=== PATIENT | female | born 1965 | race African-American/Black ===

== ENCOUNTER 2019-06-04 14:58 | Observation (INO) ==
[2019-06-04 16:32] LABS: Bilirubin,Urine Negative (Negative); Blood,Urine Negative (Negative); Clarity,Urine Clear (Clear); Color,Urine Yellow (Yellow); Glucose,Urine (UA) >=1000 mg/dL (Normal); Ketones,Urine Negative (Negative); Leukocyte Esterase,Urine Negative (Negative); Nitrite,Urine Negative (Negative); PH,Urine 7.5 pH Units (5.0-8.0); Protein,Urine Negative (Neg-Trace); Specific Gravity,Urine > 1.030 (1.010-1.025); Urobilinogen,Urine Normal (Normal)
--- NOTE | 2019-06-04 16:37 | Emergency Department Note ---
Disposition Clinical Impression: Vertigo Fall Qualifiers: Encounter type: initial encounter Qualified Code(s): W19.XXXA - Unspecified fall, initial encounter Strain of wrist, left Qualifiers: Encounter type: initial encounter Qualified Code(s): S66.912A - Strain of unspecified muscle, fascia and tendon at wrist and hand level, left hand, initial encounter Diabetes mellitus, type II Qualifiers: Diabetes mellitus senior care insulin use: unspecified senior care insulin use status Diabetes mellitus complication status: with other specified complication Qualified Code(s): E11.69 - Type 2 diabetes mellitus with other specified complication Disposition: Admitted As Inpatient Condition: Fair Referrals: Mirela Moreno [Primary Care Provider] - Forms: ED Satisfaction Letter Time of Disposition: 18:49 General Adult HPI - General Chief complaint: ED Fall Stated complaint: Fall Time Seen by Provider: 06/04/19 15:20 Source: patient Limitations: no limitations Nursing Notes Reviewed: Yes Vital Signs Reviewed: Yes - History of Present Illness HPI Narrative: She presents because of a fall and also with vertigo. The story is that she woke up to go to the bathroom around 3:00 in the morning and walked down one step and then she fell and landed the ground for about 20 minutes because she said that when she yelled out known was there to help her and she thinks that she slipped and fell however when she got back in bed and then woke up around 8:00 in the morning she had vertigo. She said she fell back onto the bed and this vertigo is new and she has not had this in the past. States she did not hit her head when she fell initially at 3:00 in the morning. She denies any numbness or weakness of extremities, slurred speech, facial droop or confusion. She does have left wrist and left elbow and left shoulder pain as well as left hip pain and right lower back pain which is worse with range of motion. Social history: Is here with her daughter and other family. No smoking or alcohol drugs Pain Scale: 8 - Related Data Home Medications Medication Instructions Recorded Confirmed Aspirin 81 mg PO DAILY 01/11/16 05/05/17 Lisinopril [Zestril] 20 mg PO BID 01/11/16 05/05/17 Lovastatin [Mevacor] 20 mg PO DAILY 01/11/16 05/05/17 metFORMIN [Glucophage] 1,000 mg PO QPM 01/11/16 05/05/17 Albuterol Sulfate [Proair Hfa] 2 puff IH Q4H PRN 02/23/16 05/05/17 Omeprazole [PriLOSEC] 20 mg PO QPM 02/23/16 05/05/17 Oxygen 1 each .ROUTE AD 02/23/16 05/05/17 Furosemide [Lasix] 20 mg PO DAILY 06/29/16 05/05/17 Albuterol Neb [Proventil Neb] 2.5 mg IH Q4H PRN 05/05/17 05/05/17 Cetirizine HCl [All Day Allergy] 10 mg PO DAILY 05/05/17 05/05/17 Mometasone/Formoterol [Dulera 200 2 puff IH BID 05/05/17 05/05/17 Mcg/5 Mcg Inhaler] Tiotropium [place] [Spiriva 2 puff IH DAILY 05/05/17 05/05/17 Respimat] raNITIdine HCl [Zantac] 150 mg PO BID 05/05/17 05/05/17 Previous Rx's Medication Instructions Recorded amLODIPine [Norvasc] 10 mg PO DAILY #30 tablet 01/17/16 hydrALAZINE [HydrALAZINE] 50 mg PO Q8HR #90 tablet 01/17/16 Albuterol Sulfate [Proventil Hfa] 6.7 gm IH QID #1 [id number] 09/08/18 Azithromycin [Azithromycin 6-Tab 250 mg PO PER PKG DI #6 tab 09/08/18 Pack] PredniSONE [Deltasone] 20 mg PO BID #10 tablet 09/08/18 Azithromycin [Azithromycin 6-Tab 250 mg PO PER PKG DI #6 tab 02/10/19 Pack] Allergies Allergy/AdvReac Type Severity Reaction Status Date / Time omeprazole Allergy See Verified 02/09/19 22:21 Comments All systems ED: reviewed and negative except as stated. Past Medical History - Past Medical History Medical history: Reports: arthritis, asthma, COPD, diabetes, GERD, hyperlipidemia, hypertension, osteoporosis, venous stasis, other Surgical history: Reports: cholecystectomy, colostomy, orthopedic, other, other Psychiatric history: Reports: no psych history - Social History Smoking Status: Former smoker Smokeless Tobacco Status: No Alcohol use: Reports: none Drug use: Reports: none Physical Exam CONSTITUTIONAL: Well-appearing; well-nourished; A&O X3, in no apparent distress HEAD: Normocephalic; atraumatic. EYES: PERRL, EOMI, no scleral icterus NOSE: The nose is normal in appearance without rhinorrhea NECK: Supple without rigidity, no PAYTON RESP: Normal chest excursion with respiration; breath sounds clear and equal bilaterally; no wheezes, rhonchi, or rales CARD: Regular rhythm, without murmurs, rub or gallop ABD: Non-distended; non-tender, soft, without rigidity, rebound or guarding SKIN: Normal for age and race; warm and dry; no apparent lesions, no rash NEUROLOGICAL: Patient is alert and oriented times three. Cranial nerves III- XII are intact. Sensory and motor functions are intact. Strength is 5/5 for flexion and extension in all 4 extremities. Finger to nose testing is equal and normal bilaterally. - General Limitations: no limitations General appearance: alert Course Vital Signs Temperature 99.0 F 06/04/19 15:01 Pulse Rate 74 06/04/19 15:01 Respiratory Rate 22 06/04/19 15:01 Blood Pressure 171/82 06/04/19 15:01 O2 Sat by Pulse Oximetry 93 06/04/19 15:01 Temperature 99.0 F 06/04/19 15:23 Pulse Rate 77 06/04/19 16:03 Respiratory Rate 16 06/04/19 16:03 Blood Pressure 158/89 06/04/19 16:03 O2 Sat by Pulse Oximetry 96 06/04/19 16:03 Oxygen Delivery Oxygen Delivery Room Air Medical Decision Making - [facility] Narrative Medical decision making narrative: Patient does have 2 issues and we will get an x-ray of the left wrist and right hip to look for evidence of fracture however this is unlikely based on my exam. The patient also has vertigo and was unsteady and the question is whether the patient could have had a cerebellar or brainstem infarct but actually caused the fall and still has that. Patient states he just does not feel right. Will be observed closely and reassessed with test results evaluated. 1637 I did go back and speak with the patient again and also review the test results. CAT scan is negative which show she does not have a bleed from her fall this morning however does not adequately evaluate the cerebellum and so with the patient's vertigo, her feeling of being "foggy", and her concomitant diabetes and hypertension and concern for cerebellar or brainstem infarct patient will be admitted and the hospitalist is paged. Regarding the tests the wrist x-ray was repeated with scaphoid view per radiology request however we are waiting for the official read and the patient will be placed in a left wrist splint. 1846 Care is transitioned to Dr. Martinez at change of shift and he will discuss the care with the hospitalist. The scaphoid review of the wrist will need to be followed up as a inpatient and I did speak with the radiology department and they have contacted the radiologist to do a stat read. The patient is placed in a wrist thumb spica splint 1908 - Medical Records Medical records reviewed: Yes I reviewed the patient's medical records. - Lab Data Lab results reviewed: Yes I reviewed the patient's lab results. Result diagrams: 06/04/19 17:09 06/04/19 17:09 Lab Results 06/04/19 06/04/19 06/04/19 Range/Units 16:15 17:09 17:09 WBC 9.3 (4.3-11.1) K/mcL RBC 4.92 (3.82-4.97) M/mcL Hgb 14.1 (11.5-15.4) g/dL Hct 42.7 (35.3-44.9) % MCV 86.8 (83.0-100.0) fL MCH 28.7 (28.0-33.3) pg MCHC 33.0 (31.6-35.5) g/dL RDW 13.1 (11.5-14.5) % Plt Count 285 (140-400) K/mcL MPV 10.0 (9.4-12.4) fL Sodium 139 (136-145) mEq/L Potassium 3.7 (3.5-5.1) mEq/L Chloride 102 (98-107) mEq/L Carbon Dioxide 26 (23-29) mEq/L BUN 12 (6-20) mg/dL Creatinine 0.98 (0.60-1.20) mg/dL Est GFR ( Amer) > 60 (> 60) Est GFR (Non-Af Amer) 59 L (> 60) BUN/Creatinine Ratio 12 (6-26) Glucose 383 H (70-105) mg/dL Calculated Osmolality 304 H (280-300) Calcium 9.2 (8.6-10.3) mg/dL Troponin I < 0.03 (< 0.04) ng/mL Urine Color Yellow (Yellow) Urine Clarity Clear (Clear) Urine pH 7.5 (5.0-8.0) pH Units Ur Specific [place] > 1.030 H (1.010-1.025) Urine Protein Negative (Neg-Trace) mg/dL Urine Glucose (UA) >=1000 H (Normal) mg/dL Urine Ketones Negative (Negative) mg/dL Urine Blood Negative (Negative) Urine Nitrite Negative (Negative) Urine Bilirubin Negative (Negative) Urine Urobilinogen Normal (Normal) mg/dL Ur Leukocyte Esterase Negative (Negative) - Radiology Data Radiology results reviewed: Yes I reviewed the patient's radiology results. NIH Stroke Scale - Level of Consciousness LOC: Alert - LOC Questions LOC Questions: Answers both correctly - LOC Commands LOC Commands: Performs both correctly - Best Gaze Best Gaze: Normal - Visual Visual: No visual loss - Facial Palsy Facial Palsy: Normal - Motor Arms Motor Arm-Left: No drift for 10 seconds Motor Arm-Right: No drift for 10 seconds - Motor Legs Motor Leg-Left: No drift for 5 seconds Motor Leg-Right: No drift for 5 seconds - Limb Ataxia Limb Ataxia: Normal, No Ataxia - Sensory Sensory: Normal - Best Language Best Language: No aphasia - Dysarthria Dysarthria: Normal - Extinction and Inattention Extinction and Inattention: Normal - NIHSS Total Score NIHSS Total Score: 0
[2019-06-04 17:28] LABS: Hematocrit 42.7 % (35.3-44.9); Hemoglobin 14.1 g/dL (11.5-15.4); Mean Corpuscular Hemoglobin 28.7 pg (28.0-33.3); Mean Corpuscular Volume 86.8 fL (83.0-100.0); Platelet Count 285 K/mcL (140-400); Red Blood Count 4.92 M/mcL (3.82-4.97); Red Cell Distribution Width 13.1 % (11.5-14.5); White Blood Count 9.3 K/mcL (4.3-11.1)
[2019-06-04 17:47] LABS: BUN/Creatinine Ratio 12 (6-26); Blood Urea Nitrogen 12 mg/dL (6-20); Calcium 9.2 mg/dL (8.6-10.3); Carbon Dioxide 26 mEq/L (23-29); Chloride 102 mEq/L (98-107); Glucose 383 mg/dL (70-105); Osmolality,Calculated 304 (280-300); Potassium 3.7 mEq/L (3.5-5.1); Sodium 139 mEq/L (136-145); eGFR For African Americans > 60 (> 60); eGFR For Non-African Americans 59 (> 60)
[2019-06-04 17:48] LABS: Troponin I < 0.03 ng/mL (< 0.04)
[2019-06-04] MEDS ORDERED: Lisinopril 20 MG TABLET PO STA (20:23)
[2019-06-04] MEDS ORDERED: Naloxone 0.4 MG/ML INJ IVP PRN (22:31)
[2019-06-04] MEDS ORDERED: amLODIPine 5 MG TABLET PO ONE (22:40)
[2019-06-04] MEDS ORDERED: Isovue-370 500 ML BOTTLE IVP ONE (22:50)
--- NOTE | 2019-06-04 23:40 | Internal Med History&Physical ---
Date of Encounter: 06/04/19 Time of Encounter: 22:30 Internal Medicine - H&P: HPI Chief complaint: Fall Admitted From: Home Plans for Post Hospital Care: Home History of present illness: Ms. Swenson is a 54 year old female with past medical history significant for hypertension, hyperlipidemia, asthma, COPD, diabetes, osteoarthritis, GERD, and sleep apnea on BIPAP who presents following mechanical fall and with complaints of dizziness. Reports last night she got up to go to restroom and tripped on something on the floor and landed on her left side. Denies striking her head, loosing consciousness, or anticoagulation use. Reports she was down on the floor for around 20 minutes trying to get up as she was sore from falling and her family couldn't hear her calling for help. Reported pain to entire left side of her body following fall but has been able to ambulate since. Reports most of her pain now isolated to her left wrist. States after she went back to bed following fall she woke up a few hours later and was dizzy upon awakening. States she sometimes has dizziness with quick positional changes but never upon awakening and never this intense. Also states she had some blurry vision during this time as well which is unusual for her. Denies any associated slurred speech, facial droop, numbness, tingling, or confusion. Also reports having posterior headaches over past month which is unusual for her as well. ER obtained EKG which showed sinus rhythm. ER also obtained chest, left hip, and left wrist xrays which showed no acute process of the left hip or chest but did show possible injury of the left scaphoid bone recommending dedicated scaphoid view of left wrist. Additional scaphoid views were added for review and addendum was faxed to nursing unit which showed benign appearing cystic lucency of the distal pole of the scaphoid is likely degenerative and no acute fracture of the scaphoid is identified on the scaphoid views. ER also obtained head CT which showed no acute intracranial abnormality. Patient was medicated in ER with Lisinopril and Antivert, and had a splint placed on her left wrist. Currently she reports improvement in her left wrist pain with immobilization and resolution of her dizziness with Antivert. Currently denies any headache, numbness, tingling, chest pain, shortness of breath above baseline, cough, abdominal pain, bowel or bladder changes. Reports running out of her blood pressure medication over past three days and not taking any but is unsure what her blood pressures have been. Reports following regularly with her PCP and Pulmonary. Past Med Surg Social Fam HX - Past Medical History Medical history: arthritis, asthma, COPD, diabetes, GERD, hyperlipidemia, hypertension, osteoporosis, venous stasis, other Additional medical history: Diverticulitis, sleep apnea on BIPAP Psychiatric history: no psych history - Past Surgical History Surgical History: cholecystectomy, colostomy, orthopedic, other, other Additional surgical history: sleep apnea, lung procedures, colostomy and reversal - Social History Smoking Status: Former smoker Smokeless Tobacco Status: No Alcohol use: occasionally Drug use: none - Family History Mother Adopted: No Living Status: Hx Family Cardiac Disorders: Yes Hx Family Cancer: Yes (rare fibroid cancer) Hx Family Endocrine Disorder: Yes Father Living Status: Hx Family Cancer: Yes Internal Medicine - H&P: Meds Aspirin 81 mg PO DAILY 01/11/16 [History] Lisinopril [Zestril] 20 mg PO BID 01/11/16 [History] Lovastatin [Mevacor] 20 mg PO DAILY 01/11/16 [History] metFORMIN [Glucophage] 1,000 mg PO QPM 01/11/16 [History] amLODIPine [Norvasc] 10 mg PO DAILY #30 tablet 01/17/16 [Rx] Albuterol Sulfate [Proair Hfa] 2 puff IH Q4H PRN 02/23/16 [History] Oxygen 1 each .ROUTE AD 02/23/16 [History] Furosemide [Lasix] 20 mg PO DAILY 06/29/16 [History] Albuterol Neb [Proventil Neb] 2.5 mg IH Q4H PRN 05/05/17 [History] Cetirizine HCl [All Day Allergy] 10 mg PO DAILY 05/05/17 [History] Mometasone/Formoterol [Dulera 200 Mcg/5 Mcg Inhaler] 2 puff IH BID 05/05/17 [History] Tiotropium [place] [Spiriva Respimat] 2 puff IH DAILY 05/05/17 [History] Allergy/AdvReac Type Severity Reaction Status Date / Time omeprazole Allergy See Verified 02/09/19 22:21 Comments All Systems PM: A 10-system review of systems was performed and is negative for pertinent findings except as documented above in the HPI. - Constitutional Vitals: Temp Pulse Resp BP Pulse Ox 99.1 F 87 17 160/100 94 06/04/19 21:35 06/04/19 21:35 06/04/19 21:35 06/04/19 22:33 06/04/19 21:35 Exam: General: Alert and oriented. Skin:Normal color, no rash, no lesions. HEENT:Pupils equal, round and reactive. Cardiovascular:Heart sounds distant, no rubs, murmurs or gallops. No JVD. Pulse regular. Lungs:Breath sounds decreased, no wheezes or crackles. Abdomen:Soft, non-tender, no rigidity. Extremities:No deformity, no edema or tenderness, no joint swelling or clubbing. Neurological:Normal cognition and motor skills. NIHSS 0. GCS 15. Pulses:Carotid and radial pulses normal +2. Rest of the physical exam is non contributory. Internal Med - H&P Results - Labs CBC & Chem 7: 06/04/19 17:09 06/04/19 17:09 Labs: Short CBC 06/04/19 Range/Units 17:09 WBC 9.3 (4.3-11.1) K/mcL Hgb 14.1 (11.5-15.4) g/dL Hct 42.7 (35.3-44.9) % Plt Count 285 (140-400) K/mcL BMP 06/04/19 17:09 Sodium 139 Potassium 3.7 Chloride 102 Carbon Dioxide 26 BUN 12 Creatinine 0.98 Glucose 383 H Calcium 9.2 Cardiac Enzymes 06/04/19 Range/Units 17:09 Troponin I < 0.03 (< 0.04) ng/mL Urine 06/04/19 Range/Units 16:15 Urine Color Yellow (Yellow) Urine Clarity Clear (Clear) Urine pH 7.5 (5.0-8.0) pH Units Ur Specific [place] > 1.030 H (1.010-1.025) Urine Protein Negative (Neg-Trace) mg/dL Urine Glucose (UA) >=1000 H (Normal) mg/dL - Impressions ITS Impressions Chest X-Ray 06/04/19 16:45 IMPRESSION: Possible injury of the left scaphoid bone. Dedicated scaphoid view of the left wrist is recommended. No acute process of the left hip or chest. D/ / 06/04/2019 16:55:47 Kang Pina MD / victor manuel Interpreting Provider: Kang Pina MD Hip X-Ray 06/04/19 16:45 IMPRESSION: Possible injury of the left scaphoid bone. Dedicated scaphoid view of the left wrist is recommended. No acute process of the left hip or chest. D/ / 06/04/2019 16:55:47 Kang Pina MD / victor manuel Interpreting Provider: Kang Pina MD Wrist X-Ray 06/04/19 16:45 IMPRESSION: Possible injury of the left scaphoid bone. Dedicated scaphoid view of the left wrist is recommended. No acute process of the left hip or chest. D/ / 06/04/2019 16:55:47 Kang Pina MD / victor manuel Interpreting Provider: Kang Pina MD Head CT 06/04/19 17:09 IMPRESSION: No acute intracranial abnormality. D/ / Harmeet Mccullough MD / Harmeet Mccullough MD Interpreting Provider: Harmeet Mccullough MD - Assessment and Plan (1) Fall Current Visit: Yes Status: Acute Assessment and plan: Reports mechanical fall last night after tripping on something on the floor landing on her left side. Denies striking her head, losing consciousness, or anticoagulation use. Reported pain to entire left side of her body following fall but is unable to ambulate since and now pain is mostly isolated to her left wrist. ER also obtained chest, left hip, and left wrist xrays which showed no acute process of the left hip or chest but did show possible injury of the left scaphoid bone recommending dedicated scaphoid view of left wrist. Additional scaphoid views were obtained and faxed to nursing unit which showed benign appearing cystic lucency of the distal pole of the scaphoid is likely degenerative and no acute fracture of the scaphoid is identified on the scaphoid views. ER also obtained head CT which showed no acute intracranial abnormality. Fall precautions ordered. PT consult ordered. Qualifiers: Encounter type: initial encounter Qualified Code(s): W19.XXXA - Unspecified fall, initial encounter (2) Dizziness Current Visit: Yes Status: Acute Assessment and plan: Reported after she went back to bed following fall she woke up a few hours later and was dizzy upon awakening. States she sometimes has dizziness with quick positional changes but never upon awakening and never this intense. Dizziness was associated with blurry vision which is unusual for her, also reports having posterior headaches over past month which is unusual for her as well. Symptoms remain resolved currently after receiving antivert in ER. Head CT showed no acute intracranial abnormality. Will obtain CTA of head and neck to rule out any further pathology. Neuro checks ordered. (3) Hypertension Current Visit: Yes Status: Acute Assessment and plan: Reports running out of her blood pressure medication over past three days and not taking any but is unsure what her blood pressures have been. Blood pressure elevated on admission. Blood pressure medications resumed, will continue to monitor. Qualifiers: Hypertension type: unspecified Qualified Code(s): I10 - Essential (primary) hypertension (4) COPD (chronic obstructive pulmonary disease) Current Visit: Yes Status: Chronic Assessment and plan: Not in acute exacerbation. Resume home medications once verified. Qualifiers: COPD type: unspecified COPD Qualified Code(s): J44.9 - Chronic obstructive pulmonary disease, unspecified (5) Sleep apnea Current Visit: Yes Status: Chronic Assessment and plan: Continue home BIPAP at night. Qualifiers: Sleep apnea type: unspecified type Qualified Code(s): G47.30 - Sleep apnea, unspecified (6) Diabetes mellitus Current Visit: Yes Status: Chronic Assessment and plan: Hold home diabetic medications. Sliding scale insulin ordered. Accu-Chek's ordered. Qualifiers: Qualified Code(s): E11.9 - Type 2 diabetes mellitus without complications - Time Spent With Patient Total time spent is greater than 50% in coordination of care (as documented) at patient's floor/unit and/or counseling patient:
[2019-06-05 01:42] LABS: Basophils % 0.3 %; Eosinophils # 0.2 K/mcL (0.0-0.6); Eosinophils % 2.6 %; Hemoglobin 13.7 g/dL (11.5-15.4); Immature Granulocytes % 0.4 % (0-4); Lymphocytes # 1.9 K/mcL (0.6-4.6); Lymphocytes % 23.8 %; Mean Corpuscular HGB Conc 32.6 g/dL (31.6-35.5); Mean Corpuscular Hemoglobin 28.5 pg (28.0-33.3); Mean Corpuscular Volume 87.3 fL (83.0-100.0); Mean Platelet Volume 10.1 fL (9.4-12.4); Monocytes # 0.5 K/mcL (0.0-1.3); Monocytes % 6.6 %; Neutrophils # 5.2 K/mcL (1.6-8.9); Platelet Count 278 K/mcL (140-400); Red Blood Count 4.81 M/mcL (3.82-4.97); Red Cell Distribution Width 13.1 % (11.5-14.5); Segmented Neutrophils % 66.3 %; White Blood Count 7.8 K/mcL (4.3-11.1)
[2019-06-05 01:59] LABS: BUN/Creatinine Ratio 13 (6-26); Blood Urea Nitrogen 13 mg/dL (6-20); Calcium 8.8 mg/dL (8.6-10.3); Carbon Dioxide 27 mEq/L (23-29); Chloride 100 mEq/L (98-107); Glucose 438 mg/dL (70-105); Osmolality,Calculated 299 (280-300); Potassium 3.8 mEq/L (3.5-5.1); Sodium 135 mEq/L (136-145); eGFR For African Americans > 60 (> 60); eGFR For Non-African Americans 59 (> 60)
[2019-06-05] MEDS ORDERED: D5% in Water 1,000 ML IVC PRN (09:02)
[2019-06-05] MEDS ORDERED: Dextrose Gel 15 GM/37.5 ML TUBE PO PRN ×2 (09:02)
[2019-06-05] MEDS ORDERED: *HR* Dextrose 50 % in Water (Syg) 50 ML SYRINGE IVP PRN (09:02)
[2019-06-05] MEDS ORDERED: Albuterol 2.5 MG/3 ML NEBULIZER IH PRN (10:46)
[2019-06-05] MEDS ORDERED: *HR* OxyCODONE/APAP 5/325 TABLET PO PRN (10:48)
[2019-06-05] MEDS: Aspirin 81 MG TAB.CHEW PO SCH (11:22)
[2019-06-05] MEDS: Lisinopril 20 MG TABLET PO SCH ×2 (11:23→20:27)
[2019-06-05] MEDS: Acetaminophen 325 MG TABLET PO PRN (11:23)
[2019-06-05] MEDS: Loratadine 10 MG TABLET PO SCH (11:23)
[2019-06-05] MEDS: amLODIPine 5 MG TABLET PO SCH (11:23)
[2019-06-05] MEDS: Insulin LISPRO 300 UNITS/3 ML VIAL SQ SCH ×2 (11:57→16:28)
--- NOTE | 2019-06-05 12:21 | Internal Med Progress Note ---
Hospitalist Progress Note - Encounter Date of Encounter: 06/05/19 Time of Encounter: 10:40 - Subjective Interval History: Ms. Swenson is a 54 year old female with past medical history significant for hypertension, hyperlipidemia, asthma, COPD, diabetes, osteoarthritis, GERD, and sleep apnea on BIPAP who presents following mechanical fall and with complaints of dizziness. As per pt last night she got up to go to restroom and tripped on something on the floor and landed on her left side. She did c/o severe left wrist pain. She was admitted in the hospital and placed on bath mixer. Patient stated she still feeling lightheaded and dizzy. Her left wrist pain is tolerable with pain medication. She denied any chest pain/shortness of breath. - Exam Vitals: Temp Pulse Resp BP Pulse Ox 98.5 F 66 16 149/83 94 06/05/19 10:49 06/05/19 10:49 06/05/19 10:49 06/05/19 10:49 06/05/19 10:49 Exam: Gen: Alert, awake, Oriented to time,place and person Chest: Diminished breath sounds B/L, No wheezing, No crackles, No rales Heart: S1S2+ RRR No murmurs Abd: Soft, NT, BS +, No organomegaly Ext: pulses are palpable, No calf tenderness LUE- mild limited ROM in Left wrist due to pain, mild swelling noticed.. Splint placed on Left wrist. No erythema noticed Neuro : No acute focal neuro deficits noticed Skin: No rash. - Assessment and Plan (1) Dizziness Current Visit: Yes Status: Acute Assessment and Plan: cont on tele cont neuro checks need to r/o CVA too. order MRI of Brain CTA of Head and Neck - no convincing evidence of hemodynamic stenosis or o cclusion involving the cervical arterial vasculature cont Meclizine (2) Strain of wrist, left Current Visit: Yes Status: Acute Assessment and Plan: concerning for scaphoid fracture Consulted Ortho Ordered MRI of Left Wrist PT / OT eval (3) Fall Current Visit: Yes Status: Acute Assessment and Plan: PT / OT eval (4) Hypertension Current Visit: Yes Status: Acute Assessment and Plan: stable BP with current meds cont home meds (5) COPD (chronic obstructive pulmonary disease) Current Visit: Yes Status: Chronic Assessment and Plan: Not in acute exacerbation. cont home medications (6) Sleep apnea Current Visit: Yes Status: Chronic Assessment and Plan: Continue home BIPAP at night. (7) Diabetes mellitus Current Visit: Yes Status: Chronic Assessment and Plan: Hold home diabetic medications. Sliding scale insulin ordered. Accu-Chek's ordered. - Time Spent with Patient Total time spent is greater than 50% in coordination of care (as documented) at patient's floor/unit and/or counseling patient: Internal Medicine: Result - Labs CBC & Chem 7: 06/05/19 01:05 06/05/19 01:05 Labs: Short CBC 06/04/19 06/05/19 Range/Units 17:09 01:05 WBC 9.3 7.8 (4.3-11.1) K/mcL Hgb 14.1 13.7 (11.5-15.4) g/dL Hct 42.7 42.0 (35.3-44.9) % Plt Count 285 278 (140-400) K/mcL Neutrophils # 5.2 (1.6-8.9) K/mcL BMP 06/04/19 06/05/19 17:09 01:05 Sodium 139 135 L Potassium 3.7 3.8 Chloride 102 100 Carbon Dioxide 26 27 BUN 12 13 Creatinine 0.98 0.98 Glucose 383 H 438 H Calcium 9.2 8.8 Cardiac Enzymes 06/04/19 Range/Units 17:09 Troponin I < 0.03 (< 0.04) ng/mL Urine 06/04/19 Range/Units 16:15 Urine Color Yellow (Yellow) Urine Clarity Clear (Clear) Urine pH 7.5 (5.0-8.0) pH Units Ur Specific [place] > 1.030 H (1.010-1.025) Urine Protein Negative (Neg-Trace) mg/dL Urine Glucose (UA) >=1000 H (Normal) mg/dL - Impressions Impressions Chest X-Ray 06/04/19 16:45 IMPRESSION: Possible injury of the left scaphoid bone. Dedicated scaphoid view of the left wrist is recommended. No acute process of the left hip or chest. D/ / 06/04/2019 16:55:47 Kang Pina MD / victor mnauel Interpreting Provider: Kang Pina MD Hip X-Ray 06/04/19 16:45 IMPRESSION: Possible injury of the left scaphoid bone. Dedicated scaphoid view of the left wrist is recommended. No acute process of the left hip or chest. D/ / 06/04/2019 16:55:47 Kang Pina MD / victor manuel Interpreting Provider: Kang Pina MD Wrist X-Ray 06/04/19 16:45 IMPRESSION: Possible injury of the left scaphoid bone. Dedicated scaphoid view of the left wrist is recommended. No acute process of the left hip or chest. D/ / 06/04/2019 16:55:47 Kang Pina MD / victor manuel Interpreting Provider: Kang Pina MD Head CT 06/04/19 17:09 IMPRESSION: No acute intracranial abnormality. D/ / Harmeet Mccullough MD / Harmeet Mccullough MD Interpreting Provider: Harmeet Mccullough MD Head CTA 06/05/19 01:31 IMPRESSION: Negative for hemodynamic stenosis or occlusion involving intracranial circulation. Mild motion involving the proximal ICAs challenging evaluation. Otherwise no convincing evidence of hemodynamic stenosis or occlusion involving the cervical arterial vasculature. D/ / Angel Robles / Angel Robles Interpreting Provider: Angel Robles Neck CTA 06/05/19 01:31 IMPRESSION: Negative for hemodynamic stenosis or occlusion involving intracranial circulation. Mild motion involving the proximal ICAs challenging evaluation. Otherwise no convincing evidence of hemodynamic stenosis or occlusion involving the cervical arterial vasculature. D/ / Angel Robles / Angel Robles Interpreting Provider: Angel Robles Consult Discharge Plan - Plan Referrals: Mirela Moreno [Primary Care Provider] - (2) Strain of wrist, left Qualifiers: Encounter type: initial encounter Qualified Code(s): S66.912A - Strain of unspecified muscle, fascia and tendon at wrist and hand level, left hand, initial encounter (3) Fall Qualifiers: Encounter type: initial encounter Qualified Code(s): W19.XXXA - Unspecified fall, initial encounter (4) Hypertension Qualifiers: Hypertension type: essential hypertension Qualified Code(s): I10 - Essential (primary) hypertension (5) COPD (chronic obstructive pulmonary disease) Qualifiers: COPD type: unspecified COPD Qualified Code(s): J44.9 - Chronic obstructive pulmonary disease, unspecified (6) Sleep apnea Qualifiers: Sleep apnea type: unspecified type Qualified Code(s): G47.30 - Sleep apnea, unspecified (7) Diabetes mellitus Qualifiers: Qualified Code(s): E11.9 - Type 2 diabetes mellitus without complications
--- NOTE | 2019-06-05 13:43 | Orthopedic Consult Note ---
Date of Encounter: 06/05/19 Time of Encounter: 17:15 Assessment and Plan (1) Left wrist pain Current Visit: Yes Status: Acute Xray of wrist showed questionable fracture of scaphoid. MRI of left wrist shows no evidence for occult fracture with mild to moderate tenosynovitis to 2nd and 4th extensor compartments however most of her pain is through the first extensor compartment. Discussed case with Dr. Villareal who also reviewed the MRI - no scaphoid fracture Do NOT recommend PT/OT for the wrist at this point until she has further evaluation outpatient. Recommend resting the wrist for now. Continue to wear the wrist brace for support which was provided to her in the ER until follow up in office with no wrist motion. May remove brace for hygiene pu rposes but otherwise wear at all other times even while sleeping. continue NWB to left hand. Ice and elevate as needed. Pain control per primary team. Will follow up in [facility] office with sports med in 1 week for reevaluation of the wrist pain. Will have office fax appt card to floor. History of Present Illness Chief complaint: left wrist pain HPI: Ms. Swenson is a 54 year old female presented to [facility] after a fall early yes morning. States there was one stair in her home that she missed and fell to the floor landing on her left side and left arm was behind her back. She states entire body aches but worst pain is focused to her left wrist radial side and is achy worse with extending wrist back. States she has had episodes of vertigo and still has some dizziness which is being worked up by primary team. Denies any numbness or tingling. Denies any chest pain, SOB, fevers. She states she is ambidextrous but writes with her right hand better. Past Med Surg Social Fam HX - Past Medical History Medical history: arthritis, asthma, COPD, diabetes, GERD, hyperlipidemia, hypertension, osteoporosis, venous stasis, other Additional medical history: Diverticulitis, sleep apnea on BIPAP Psychiatric history: no psych history - Past Surgical History Surgical History: cholecystectomy, colostomy, orthopedic, other, other Additional surgical history: sleep apnea, lung procedures, colostomy and reversal - Social History Smoking Status: Former smoker Smokeless Tobacco Status: No Alcohol use: occasionally Drug use: none - Family History Mother Adopted: No Living Status: Hx Family Cardiac Disorders: Yes Hx Family Cancer: Yes (rare fibroid cancer) Hx Family Endocrine Disorder: Yes Father Living Status: Hx Family Cancer: Yes Medications and Allergies Aspirin 81 mg PO DAILY 01/11/16 [History] Lisinopril [Zestril] 20 mg PO BID 01/11/16 [History] Lovastatin [Mevacor] 20 mg PO DAILY 01/11/16 [History] metFORMIN [Glucophage] 1,000 mg PO QPM 01/11/16 [History] amLODIPine [Norvasc] 10 mg PO DAILY #30 tablet 01/17/16 [Rx] Albuterol Sulfate [Proair Hfa] 2 puff IH Q4H PRN 02/23/16 [History] Furosemide [Lasix] 20 mg PO DAILY PRN 06/29/16 [History] Albuterol Neb [Proventil Neb] 2.5 mg IH Q4H PRN 05/05/17 [History] Mometasone/Formoterol [Dulera 200 Mcg/5 Mcg Inhaler] 2 puff IH BID 05/05/17 [History] Tiotropium [place] [Spiriva Respimat] 2 puff IH DAILY 05/05/17 [History] Cetirizine HCl [Zyrtec] 10 mg PO DAILY 06/05/19 [History] Allergy/AdvReac Type Severity Reaction Status Date / Time omeprazole Allergy See Verified 02/09/19 22:21 Comments All Systems Reviewed: The remainder of the systems were reviewed and are negative - Constitutional Constitutional: as per HPI - Cardiovascular Cardiovascular: as per HPI - Respiratory Respiratory: as per HPI - Musculoskeletal Musculoskeletal: as per HPI Physical Exam - Constitutional Vitals: Temp Pulse Resp BP Pulse Ox 98.5 F 66 16 149/83 94 06/05/19 10:49 06/05/19 10:49 06/05/19 10:49 06/05/19 10:49 06/05/19 10:49 - Wrist & Hand left Location of pain: radial wrist (no open wounds, lesions, erythema or ecchymosis noted. mild swelling. mild tenderness to palpation of radial wrist but no distinct pain with palpation over snuffbox. unable to fully flex fingers into full fist motion, able to fully extend fingers, mild limitation to full flexion/extension of wrist. brisk cap refill, sensation intact distally) Results - Labs Result Diagrams: 06/05/19 01:05 06/05/19 01:05 Labs: Abnormal lab results Sodium 135 mEq/L (136-145) L 06/05/19 01:05 Est GFR (Non-Af Amer) 59 (> 60) L 06/05/19 01:05 Glucose 438 mg/dL (70-105) H 06/05/19 01:05 POC Glucose 330 mg/dL (70-99) H 06/04/19 21:41 Calculated Osmolality 304 (280-300) H 06/04/19 17:09 Ur Specific [place] > 1.030 (1.010-1.025) H 06/04/19 16:15 Urine Glucose (UA) >=1000 mg/dL (Normal) H 06/04/19 16:15 H & H 06/04/19 06/05/19 Range/Units 17:09 01:05 Hgb 14.1 13.7 (11.5-15.4) g/dL Hct 42.7 42.0 (35.3-44.9) % All other labs normal. - Diagnostic results Wrist/Hand x-ray: report reviewed, image reviewed Wrist/Hand MRI: report reviewed, image reviewed Consult Discharge Plan - Plan Referrals: Mirela Moreno [Primary Care Provider] - - Attending Attestation Case and plan of care discussed with supervising physician, Dr. Villareal, who was available for all aspects of care.
[2019-06-05] MEDS: Budesonide/Formoterol 160/4.5 1 PUFF INH IH SCH ×2 (16:06→20:10)
[2019-06-05] MEDS ORDERED: Insulin LISPRO 300 UNITS/3 ML VIAL SQ SCH (21:00)
[2019-06-06] MEDS: Acetaminophen 325 MG TABLET PO PRN ×2 (03:16→09:07)
[2019-06-06] MEDS: Budesonide/Formoterol 160/4.5 1 PUFF INH IH SCH (08:21)
[2019-06-06] MEDS ORDERED: Furosemide 20 MG TABLET PO SCH (09:00)
[2019-06-06] MEDS: Insulin LISPRO 300 UNITS/3 ML VIAL SQ SCH (09:03)
[2019-06-06] MEDS: Loratadine 10 MG TABLET PO SCH (09:06)
[2019-06-06] MEDS: amLODIPine 5 MG TABLET PO SCH (09:06)
[2019-06-06] MEDS: Lisinopril 20 MG TABLET PO SCH (09:06)
[2019-06-06] MEDS: Aspirin 81 MG TAB.CHEW PO SCH (09:06)
[2019-06-06] MEDS ORDERED: Insulin LISPRO 300 UNITS/3 ML VIAL SQ SCH ×2 (09:10→09:12)
[2019-06-06] MEDS ORDERED: Insulin DETEMIR 100 UNIT/ML X5UNITS SQ SCH (09:15)
--- NOTE | 2019-06-06 09:48 | Electrocardiograph Report ---
[facility] Test Date: 2019-06-04 Pat Name: Camila Swenson Department: [id number] Room: 3B14 Gender: F [employer] Blank Handler: : [id number] Requested By: Milan Sosa Order Number: [id number] Reading MD: Rene Krueger Measurements Intervals [place] Rate: 75 P: 52 MT: 167 QRS: 49 QRSD: 108 T: 70 QT: 387 QTc: 433 Interpretive Statements Sinus rhythm Electronically Signed On 06-06-2019 9:46:43 EDT by Rene Krueger
[2019-06-06] MEDS ORDERED: Tiotropium 18 MCG inhalation IH SCH (10:00)
--- NOTE | 2019-06-06 11:10 | Discharge Summary ---
- NOTES TO OUTPATIENT PROVIDER Notes to Outpatient Provider: f/u with PCP in one week. f/u with Ortho / Hand surgeon Dr. Villareal in one week. Date of Encounter: 06/06/19 Time of Encounter: 11:02 - Discharge Diagnosis (1) Left wrist pain Priority: Primary Status: Acute (2) Dizziness Priority: Primary Status: Acute (3) Fall Priority: Secondary Status: Acute Qualifiers: Encounter type: initial encounter Qualified Code(s): W19.XXXA - Unspecified fall, initial encounter (4) Hypertension Priority: Secondary Status: Acute Qualifiers: Hypertension type: essential hypertension Qualified Code(s): I10 - Essential (primary) hypertension (5) COPD (chronic obstructive pulmonary disease) Priority: Secondary Status: Chronic Qualifiers: COPD type: unspecified COPD Qualified Code(s): J44.9 - Chronic obstructive pulmonary disease, unspecified (6) Sleep apnea Priority: Secondary Status: Chronic Qualifiers: Sleep apnea type: unspecified type Qualified Code(s): G47.30 - Sleep apnea, unspecified (7) Diabetes mellitus Priority: Secondary Status: Chronic Qualifiers: Diabetes mellitus type: type 2 Diabetes mellitus penitentiary insulin use: without intermodal dispatcher use Diabetes mellitus complication status: without complication Qualified Code(s): E11.9 - Type 2 diabetes mellitus without complications Hospital course: Ms. Swenson is a 54 year old female with past medical history significant for hypertension, hyperlipidemia, asthma, COPD, diabetes, osteoarthritis, GERD, and sleep apnea on BIPAP who presents following mechanical fall and with complaints of dizziness. As per pt last night she got up to go to restroom and tripped on something on the floor and landed on her left side. She did c/o severe left wrist pain. She was admitted in the hospital and placed on alarm security or surveillance monitor. She did go for brain MRI which came back as negative for infarction. She was started on Meclizine for her lightheaded and dizzy. She did have severe left wrist pain. She was evaluated by Ortho Dr. Villareal. Her Left wrist MRI ruled out any scaphoid / occult fx. At this point Ortho recommend no physical therapy for her left wrist and non weight bearing on Left wrist. Also recommend to wear Left wrist brace / splint at all other times even while sleeping. She was evaluated by PT / OT who recommended home PT / OT. So we reached out to pt's PCP to set up for home PT / OT. She also have uncontrolled blood sugars, her HbA1C was pending. I did start her on Levemir 25 U BID , along with Glipizide 5mg PO BID. Also recommend to continue home dose of Metformin. I did discuss these instruction with pt and her PCP too. - Time Spent with Patient Total time spent providing and/or coordinating discharge services: - Discharge Medications Prescriptions: New GlipiZIDE [Glucotrol] 5 mg PO BIDWM #60 tablet Insulin DETEMIR [Levemir Flextouch] 25 unit SQ BID #2 insuln.pen Continued Aspirin 81 mg PO DAILY metFORMIN [Glucophage] 1,000 mg PO QPM Lovastatin [Mevacor] 20 mg PO DAILY Lisinopril [Zestril] 20 mg PO BID amLODIPine [Norvasc] 10 mg PO DAILY #30 tablet Albuterol Sulfate [Proair Hfa] 2 puff IH Q4H PRN PRN Reason: Shortness Of Breath Furosemide [Lasix] 20 mg PO DAILY PRN PRN Reason: SWELLING Albuterol Neb [Proventil Neb] 2.5 mg IH Q4H PRN PRN Reason: Shortness Of Breath/Wheezing Tiotropium [place] [Spiriva Respimat] 2 puff IH DAILY Mometasone/Formoterol [Dulera 200 Mcg/5 Mcg Inhaler] 2 puff IH BID Cetirizine HCl [Zyrtec] 10 mg PO DAILY Home Medications: Aspirin 81 mg PO DAILY 01/11/16 [History] Lisinopril [Zestril] 20 mg PO BID 01/11/16 [History] Lovastatin [Mevacor] 20 mg PO DAILY 01/11/16 [History] metFORMIN [Glucophage] 1,000 mg PO QPM 01/11/16 [History] amLODIPine [Norvasc] 10 mg PO DAILY #30 tablet 01/17/16 [Rx] Albuterol Sulfate [Proair Hfa] 2 puff IH Q4H PRN 02/23/16 [History] Furosemide [Lasix] 20 mg PO DAILY PRN 06/29/16 [History] Albuterol Neb [Proventil Neb] 2.5 mg IH Q4H PRN 05/05/17 [History] Mometasone/Formoterol [Dulera 200 Mcg/5 Mcg Inhaler] 2 puff IH BID 05/05/17 [History] Tiotropium [place] [Spiriva Respimat] 2 puff IH DAILY 05/05/17 [History] Cetirizine HCl [Zyrtec] 10 mg PO DAILY 06/05/19 [History] GlipiZIDE [Glucotrol] 5 mg PO BIDWM #60 tablet 06/06/19 [Rx] Insulin DETEMIR [Levemir Flextouch] 25 unit SQ BID #2 insuln.pen 06/06/19 [Rx] Meclizine HCl [Verticalm] 25 mg PO TID PRN 5 Days #15 tablet 06/06/19 [Rx] Oxycodone HCl/Acetaminophen [Percocet 5-325 mg Tablet] 1 each PO TID PRN 5 Days #15 tablet 06/06/19 [Rx] Allergies/Adverse Reactions: Allergy/AdvReac Type Severity Reaction Status Date / Time omeprazole Allergy See Verified 02/09/19 22:21 Comments Date of admission: 06/04/19 19:42 Primary care physician: Mirela Moreno Consults: 06/04/19 22:42 Consult to Physical Therapy [CONS] Routine Comment: Evaluate, develop and implement POC Reason for Consult: Patient reports mechanical fall at home. Please evaluate and treat. Does patient have active BEDREST order?: No Is patient medically & hemodynamically stable?: Yes 06/05/19 11:15 Consult to Occupational Therapy [CONS] Routine Comment: Evaluate, develop and implement POC Reason for Consult: WEAKNESS, PT RECOMMENDS IP SWING BED. WILL NEED INSURANCE AUTH Does patient have active BEDREST order?: No Is patient medically & hemodynamically stable?: Yes 06/05/19 11:16 Consult to [facility] [CONS] Routine Reason for SW Consult: PT RECOMMENDS IP SWING BED 06/05/19 11:21 Consult to Orthopedic Surgery [CONS] Routine Consulting Provider: [facility] Reason for Consult: Acute Left hand injury - possible scaphoid fx Time Notified: 11:21 Call Completed: Yes - Constitutional Vitals: Temp Pulse Resp BP Pulse Ox 98.0 F 57 16 137/81 98 06/06/19 07:41 06/06/19 07:41 06/06/19 07:41 06/06/19 07:41 06/06/19 07:41 General appearance: Present: A&O X 3, no acute distress, answers questions appropriately Exam: Gen: Alert, awake, Oriented to time,place and person Chest: Diminished breath sounds B/L, No wheezing, No crackles, No rales Heart: S1S2+ RRR No murmurs Abd: Soft, NT, BS +, No organomegaly Ext: pulses are palpable, No calf tenderness LUE- mild limited ROM in Left wrist due to pain, Improving swelling noticed.. Brace / Splint placed on Left wrist. No erythema noticed Neuro : No acute focal neuro deficits noticed Skin: No rash. - Patient Status Disposition: Home Health Service Condition: Good Overall status at discharge: patient is back to baseline - Discharge Instructions Follow Up With: Mirela Moreno [Primary Care Provider] - Rainer Villareal MD [Partnered Physician] - Additional Instructions: Continue to wear the wrist brace for support. May remove brace for hygiene purposes but otherwise wear at all other times even while sleeping. No weight bearing to left hand Ice and elevate as needed - Diet and Activity Activity: as per physical therapy, increase activity as tolerated Diet: low salt diet
[2019-06-06 11:48] VITALS: BP 156/89
--- NOTE | 2019-06-06 15:21 | Physician Discharge Referral ---
Home Health/Hosp Referral Info Transfer to: Home Health Provider in Charge Post Discharge: PCP - Diagnosis (1) Left wrist pain Status: Acute (2) Dizziness Status: Acute (3) Fall Status: Acute (4) Hypertension Status: Acute (5) COPD (chronic obstructive pulmonary disease) Status: Chronic (6) Sleep apnea Status: Chronic (7) Diabetes mellitus Status: Chronic - Respiratory Orders Smoking Cessation: Smoking cessation has been advised. For more information, call the [place] Tobacco Quit Line at 6-747-SBZT-NOW. - Services Needed Following services are medically necessary services: Nursing, Physical Therapy, Occupational Therapy - Transfer Medications Prescriptions: GlipiZIDE [Glucotrol] 5 mg PO BIDWM #60 tablet Prescription Printed Insulin DETEMIR [Levemir Flextouch] 25 unit SQ BID #2 insuln.pen Prescription Printed Oxycodone HCl/Acetaminophen [Percocet 5-325 mg Tablet] 1 each PO TID PRN 5 Days #15 tablet PRN Reason: Pain Prescription Printed Meclizine HCl [Verticalm] 25 mg PO TID PRN 5 Days #15 tablet PRN Reason: Vertigo Prescription Printed Home Medications: Aspirin 81 mg PO DAILY 01/11/16 [History] Lisinopril [Zestril] 20 mg PO BID 01/11/16 [History] Lovastatin [Mevacor] 20 mg PO DAILY 01/11/16 [History] metFORMIN [Glucophage] 1,000 mg PO QPM 01/11/16 [History] amLODIPine [Norvasc] 10 mg PO DAILY #30 tablet 01/17/16 [Rx] Albuterol Sulfate [Proair Hfa] 2 puff IH Q4H PRN 02/23/16 [History] Furosemide [Lasix] 20 mg PO DAILY PRN 06/29/16 [History] Albuterol Neb [Proventil Neb] 2.5 mg IH Q4H PRN 05/05/17 [History] Mometasone/Formoterol [Dulera 200 Mcg/5 Mcg Inhaler] 2 puff IH BID 05/05/17 [History] Tiotropium [place] [Spiriva Respimat] 2 puff IH DAILY 05/05/17 [History] Cetirizine HCl [Zyrtec] 10 mg PO DAILY 06/05/19 [History] GlipiZIDE [Glucotrol] 5 mg PO BIDWM #60 tablet 06/06/19 [Rx] Insulin DETEMIR [Levemir Flextouch] 25 unit SQ BID #2 insuln.pen 06/06/19 [Rx] Meclizine HCl [Verticalm] 25 mg PO TID PRN 5 Days #15 tablet 06/06/19 [Rx] Oxycodone HCl/Acetaminophen [Percocet 5-325 mg Tablet] 1 each PO TID PRN 5 Days #15 tablet 06/06/19 [Rx] Allergies/Adverse Reactions: Allergy/AdvReac Type Severity Reaction Status Date / Time omeprazole Allergy See Verified 02/09/19 22:21 Comments Certification: Further, I certify that my clinical findings support that this patient is homebound (i.e. absences from home require considerable and taxing effort and are for medical reasons or uatsdin services or infrequently or short duration when for other reasons) because: Homebound Reason: Patient requires assistance of a person or device to safely leave home Attestation: My signature below is to certify that this patient is under my care and that I, or nurse practitioner, or a physician's automotive service assistant working with me, has a [id number] encounter with this patient.
== END 2019-06-06 13:48 | disposition home health service (06) ==
LOC: 3BNU 14:58 → EMEROOARM 14:58 → SUATTDRO 19:42 → 3BNU 21:09
PROVIDERS: ADMIT Family Medicine; ATTEND Family Medicine